=== PATIENT | male | born 1965 | race American Indian/Alaskan Native ===

== ENCOUNTER 2017-07-14 13:38 | Emergency (ER) | payer SELFPAY ==
[2017-07-14] MEDS ORDERED: TESSALON PERLES PO ONE (15:24)
[2017-07-14] MEDS ORDERED: LIDOCAINE VISCOUS 2% PO ONE (15:24)
[2017-07-14] MEDS ORDERED: ULTRAM PO ONE (15:24)
[2017-07-14] MEDS ORDERED: MUCINEX ER PO ONE (15:24)
--- NOTE | 2017-07-14 15:32 | Emergency Department Report ---
Chief Complaint: Upper Respiratory Infection Stated Complaint: FLU LIKE SYMPTOMS Time Seen by Provider: 07/14/17 15:09 - HPI History of Present Illness: The patient is a 51-year-old male who presents for evaluation of cold-like symptoms. The patient reports 2-3 days of generalized myalgias and achy quality headache, moderate severity, constant since onset, and is exacerbated with coughing. He also has experienced a nonproductive cough and soreness of throat, moderate in severity, exacerbated with swallowing, burning in quality. The patient fever, hemoptysis, denies dyspnea, neck stiffness, dysphagia, stridor, drooling, difficulty tolerating secretions, dysphonia, hoarseness of voice, neck stiffness, chest pain, abdominal pain syncope, paresthesias, or motor weakness in the arms or legs, or other focal neurological deficit - Exam Vital Signs: Vital Signs 07/14/17 13:50 Temperature 97.8 F Pulse Rate 81 Respiratory 18 Rate Blood Pressure 143/86 O2 Sat by Pulse 99 Oximetry Physical Exam: General: well-nourished, well-developed, no acute distress Head: Normocephalic, atraumatic Eyes: normal sclera ENT: Mucous membranes are pink and moist Neck: trachea midline, neck supple, No neck stiffness, no cervical adenopathy Respiratory: Breath sounds equal bilaterally, no wheezing, rales, or rhonchi Cardio: S1 and S2 present, no murmurs, rubs, gallops, capillary refill is brisk Abdomen: Normoactive bowel sounds, soft abdomen, no rigidity, no guarding or rebound tenderness Chest WALL/Back: No tenderness to palpation of the chest wall, no CVA tenderness with percussion Musc: No pitting edema Skin: No rash Neuro: alert oriented x4, normal cognition, speech normal, PERRL, EOM intact, no facial drooping, no uvula or tongue deviation on protrusion, no deficit with rotation of neck or shoulder shrug, no obvious gross motor deficit in the upper or lower extremities with flexion or extension at the shoulder, elbow, wrist, hip, knee, or ankle bilaterally, no obvious gross sensation deficit to crude touch or 2 pt discrimination, 2+ symmetric reflexes on DTR testing, no coordination deficit with gswqmr-nd-vebd or scha-qq-lqdy testing, romberg negative, patient able to to ambulate without abnormal gait Psych: Normal affect MSE screening note: Focused history and physical exam performed. Due to findings the following was ordered: ED Disposition for MSE Condition: Undetermined Referrals: PRIMARY CARE, [Primary Care Provider] - 3-5 Days
--- NOTE | 2017-07-14 15:55 | Emergency Department Report ---
- General Chief Complaint: Upper Respiratory Infection Stated Complaint: FLU LIKE SYMPTOMS Time Seen by Provider: 07/14/17 15:09 Source: patient Mode of arrival: Ambulatory Limitations: No Limitations - History of Present Illness Initial Comments: 51-year-old male past medical history peptic ulcer disease presents with complaint of cough slightly productive, left-sided earache, body aches. Patient is awake alert and oriented 3 no audible wheezing or stridor. Denies nausea or vomiting. States he has slight body aches. Unknown if he has sick contacts at work. Denies chest pain palpitations or shortness of breath at rest. States he does feel slightly feverish and also complaining of left earache. States he also has slightly sore throat. Speaking in full sentences no trismus or drooling noted. MD Complaint: cough Onset/Timin -: days(s) Severity: moderate Consistency: intermittent Associated Symptoms: fever, sore throat, cough - Related Data Previous Rx's Medication Instructions Recorded Last Taken Type Azithromycin [Zithromax Z-DEBORAH] 250 mg PO QDAY #1 pack 07/14/17 Unknown Rx Benzonatate [Tessalon Perles] 100 mg PO Q8HR PRN #20 capsule 07/14/17 Unknown Rx Dextromethorphan/Benzocaine 1 each PO Q4H PRN #1 box 07/14/17 Unknown Rx [Cepacol Sorethroat-Cough Jesus] Phenylephrine/Dm/Acetaminop/GG 10 ml PO Q6H PRN #1 liquid 07/14/17 Unknown Rx [Mucinex Geoj-Ykf-Esgsyahtuj Lq] Allergies Allergy/AdvReac Type Severity Reaction Status Date / Time No Known Allergies Allergy Unverified 07/14/17 13:52 ED Review of Systems ROS: Stated complaint: FLU LIKE SYMPTOMS Other details as noted in HPI Constitutional: fever. denies: chills Eyes: denies: eye pain, eye discharge, vision change ENT: denies: ear pain, throat pain Respiratory: cough. denies: shortness of breath, wheezing Cardiovascular: denies: chest pain, palpitations Endocrine: no symptoms reported Gastrointestinal: denies: abdominal pain, nausea, diarrhea Genitourinary: denies: urgency, dysuria Musculoskeletal: denies: back pain, joint swelling, arthralgia Skin: denies: rash, lesions Neurological: denies: headache, weakness, paresthesias Psychiatric: denies: anxiety, depression Hematological/Lymphatic: denies: easy bleeding, easy bruising ED Past Medical Hx - Past Medical History Hx GERD: Yes (peptic ulcers) - Surgical History Past Surgical History?: No - Social History Smoking Status: Never Smoker Substance Use Type: None - Medications Home Medications: Home Medications Medication Instructions Recorded Confirmed Last Taken Type Azithromycin [Zithromax Z-DEBORAH] 250 mg PO QDAY #1 pack 07/14/17 Unknown Rx Benzonatate [Tessalon Perles] 100 mg PO Q8HR PRN #20 capsule 07/14/17 Unknown Rx Dextromethorphan/Benzocaine 1 each PO Q4H PRN #1 box 07/14/17 Unknown Rx [Cepacol Sorethroat-Cough Jesus] Phenylephrine/Dm/Acetaminop/GG 10 ml PO Q6H PRN #1 liquid 07/14/17 Unknown Rx [Mucinex Aueq-Ugt-Bnsapgsoep Lq] ED Physical Exam - General Limitations: No Limitations General appearance: alert, in no apparent distress - Head Head exam: Present: atraumatic, normocephalic - Eye Eye exam: Present: normal appearance, PERRL, EOMI - ENT ENT exam: Present: mucous membranes moist - Expanded ENT Exam Expanded TM/Canal exam: Erythema: Right TM Mouth exam: Present: normal external inspection Teeth exam: Present: normal inspection Throat exam: Positive: normal inspection (no [employer], uvula is midline, no tonsillar exudates) - Neck Neck exam: Present: normal inspection - Respiratory Respiratory exam: Present: normal lung sounds bilaterally (lungs clear to auscultation bilaterally). Absent: respiratory distress - Cardiovascular Cardiovascular Exam: Present: regular rate, normal rhythm. Absent: systolic murmur, diastolic murmur, rubs, gallop - GI/Abdominal GI/Abdominal exam: Present: soft, normal bowel sounds - Rectal Rectal exam: Present: deferred - Extremities Exam Extremities exam: Present: normal inspection - Back Exam Back exam: Present: normal inspection - Neurological Exam Neurological exam: Present: alert, oriented X3, CN II-XII intact, normal gait - Psychiatric Psychiatric exam: Present: normal affect, normal mood - Skin Skin exam: Present: warm, dry, intact, normal color. Absent: rash ED Course Vital Signs 04/22/18 13:50 Temperature 97.8 F Pulse Rate 81 Respiratory 18 Rate Blood Pressure 143/86 O2 Sat by Pulse 99 Oximetry ED Medical Decision Making - Medical Decision Making A/P: Viral syndrome versus otitis media 1-chest x-ray wnl 2-Tylenol when necessary, Tessalon Perles, Mucinex, throat lozenges, azithromycin 3- f/u with pmd, vs stable before dc Critical care attestation.: If time is entered above; I have spent that time in minutes in the direct care of this critically ill patient, excluding procedure time. ED Disposition Clinical Impression: Upper respiratory infection Qualifiers: URI type: unspecified viral URI Qualified Code(s): J06.9 - Acute upper respiratory infection, unspecified Disposition: DC-01 TO HOME OR SELFCARE Is pt being admited?: No Does the pt Need Aspirin: No Condition: Undetermined Instructions: Upper Respiratory Infection (ED), Otitis Media (ED) Prescriptions: Azithromycin [Zithromax Z-DEBORAH] 250 mg PO QDAY #1 pack Benzonatate [Tessalon Perles] 100 mg PO Q8HR PRN #20 capsule PRN Reason: Cough Dextromethorphan/Benzocaine [Cepacol Sorethroat-Cough Jesus] 1 each PO Q4H PRN #1 box PRN Reason: Cough Phenylephrine/Dm/Acetaminop/GG [Mucinex Jqfr-Tvy-Apwfpytrnp Lq] 10 ml PO Q6H PRN #1 liquid PRN Reason: Cough Referrals: [facility] [Outside] - 3-5 Days [facility] [Outside] - 3-5 Days Forms: Work/School Release Form(ED) Time of Disposition: 17:07
[2017-07-14] MEDS ORDERED: MOTRIN PO ONE (16:19)
[2017-07-14] MEDS ORDERED: TYLENOL PO ONE (16:20)
--- NOTE | 2017-07-14 16:22 | XRay Report ---
FINAL REPORT EXAM: XR CHEST ROUTINE 2V HISTORY: cough TECHNIQUE: Two view chest PA and lateral PRIORS: None. FINDINGS: Cardiac and mediastinal contours are unremarkable. No focal pulmonary infiltrate is identified. No pleural fluid collection seen. Pulmonary vasculature is unremarkable. IMPRESSION: Negative two-view chest
[2017-07-14 17:22] VITALS: BP 121/84
== END 2017-07-14 17:20 | disposition home or self-care (01) ==
LOC: ED 13:38
DX: J06.9 Acute upper respiratory infection, unspecified (principal); K21.9 Gastro-esophageal reflux disease without esophagitis
CPT/HCPCS: 71046; 99283

== ENCOUNTER 2017-07-16 13:20 | Emergency (ER) | payer OTHER ==
[2017-07-16 13:27] VITALS: BP 123/66
--- NOTE | 2017-07-16 17:23 | Emergency Department Report ---
[facility] Chief Complaint: Eye Problems Stated Complaint: PINK EYE Time Seen by Provider: 07/16/17 16:47 Duration: 2 Days Side: Bilateral Severity: moderate Symptoms: Yes Eye Itching, Yes Eye Redness, Yes Mucous Drainage, Yes Purulent Drainage, No Eye Pain, No Blurred Vision, No Preceding URI, No H/O Allergic Rhinitis, No Contact Lens Use, No Trauma, No Fever, No Headache Other History: Patient is a 51-year-old male who presents to ED complaining of the patient's that is bilateral eyes. Patient states his medication for the past 2 days. Patient states he woke up this morning with a lot of mucus in both eyes. Patient denies trauma, blurry vision, contacts or glasses use. Patient was seen here about 4 days ago for upper respiratory infection with cough. He denies fever nausea vomiting or chills ED Review of Systems ROS: Stated complaint: PINK EYE Other details as noted in HPI Constitutional: denies: chills, fever Eyes: denies: eye pain, eye discharge, vision change ENT: denies: ear pain, throat pain Respiratory: denies: cough, shortness of breath, wheezing Cardiovascular: denies: chest pain, palpitations Endocrine: no symptoms reported Gastrointestinal: denies: abdominal pain, nausea, diarrhea Genitourinary: denies: urgency, dysuria Musculoskeletal: denies: back pain, joint swelling, arthralgia Skin: denies: rash, lesions Neurological: denies: headache, weakness, paresthesias Psychiatric: denies: anxiety, depression Hematological/Lymphatic: denies: easy bleeding, easy bruising ED Past Medical Hx - Past Medical History Hx GERD: Yes (peptic ulcers) - Social History Smoking Status: Never Smoker Substance Use Type: None - Medications Home Medications: Home Medications Medication Instructions Recorded Confirmed Last Taken Type Azithromycin [Zithromax Z-DEBORAH] 250 mg PO QDAY #1 pack 07/14/17 Unknown Rx Benzonatate [Tessalon Perles] 100 mg PO Q8HR PRN #20 capsule 07/14/17 Unknown Rx Dextromethorphan/Benzocaine 1 each PO Q4H PRN #1 box 07/14/17 Unknown Rx [Cepacol Sorethroat-Cough Jesus] Phenylephrine/Dm/Acetaminop/GG 10 ml PO Q6H PRN #1 liquid 07/14/17 Unknown Rx [Mucinex Zczn-Ujx-Qacmfjywzy Lq] Erythromycin [Erythromycin Ophth 1 applic OP BID #1 tube 07/16/17 Unknown Rx Oint] Ketotifen Fumarate [Allergy Eye 2 drops OP TID #1 bottle 07/16/17 Unknown Rx Drops] Ofloxacin [Ocuflox 0.3%] 1 - 2 drop OP Q6HR #1 bottle 07/16/17 Unknown Rx [facility] Exam - Exam General: Vital signs noted. No distress. Alert and acting appropriately. EYE: Vision is intact bilaterally, yellowish discharge seen in bilateral eyes, nonedematous, sclera is clear bilaterally. No evidence of foreign object in his bilaterally. No lesions bilaterally Eye Exam: Both Injection, Both Mucous Discharge, Neither Chemosis, Neither Abnormal Pupil, Neither EOMI, Neither Eye Foreign Body, Neither Lid Foreign Body , Neither Purulent Discharge HEENT: No Nasal Congestion, No Pharyngeal Erythema Remainder of HEENT: Normal Lungs: Yes Clear Lung Sounds, Yes Good Air Exchange, No Wheezes, No Stridor, No Cough, No Nasal Flaring, No Retractions, No Use of Accessory Muscles ED Course Vital Signs 07/16/17 13:26 Temperature 98.1 F Pulse Rate 70 Respiratory 18 Rate Blood Pressure 123/66 O2 Sat by Pulse 98 Oximetry ED Medical Decision Making - Medical Decision Making 51-year-old male presents with bilateral bacterial conjunctivitis ED course: I discussed treatment with the patient. I discussed antibiotic therapy for the eyes. Patient states he started taking medication as prescribed from his last visit. I discussed with him to continue taking his meds as prescribed. mucus d/c were cleaned with normal saline from eyes. I discussed the patient to follow up with his primary care physician as soon as possible. Vision is intact, vital signs are stable patient is in no distress Discussed with the patient that if symptoms worsen to return to ED immediately. Critical care attestation.: If time is entered above; I have spent that time in minutes in the direct care of this critically ill patient, excluding procedure time. ED Disposition Clinical Impression: Conjunctivitis of both eyes Qualifiers: Conjunctivitis type: acute Acute conjunctivitis type: bacterial Qualified Code( s): H10.33 - Unspecified acute conjunctivitis, bilateral Disposition: - TO HOME OR SELFCARE Is pt being admited?: No Does the pt Need Aspirin: No Condition: Stable Instructions: Conjunctivitis (ED), Allergic Rhinitis (ED) Additional Instructions: Make sure to follow up with the primary care physician as discussed. Take all your medications as you've been prescribed. If you have any worsening symptoms or develop new symptoms please return to ED immediately. Prescriptions: Erythromycin [Erythromycin Ophth Oint] 1 applic OP BID #1 tube Ketotifen Fumarate [Allergy Eye Drops] 2 drops OP TID #1 bottle Ofloxacin [Ocuflox 0.3%] 1 - 2 drop OP Q6HR #1 bottle Referrals: PRIMARY CARE, [Primary Care Provider] - 3-5 Days [facility] [Outside] - 3-5 Days [facility] [Outside] - 3-5 Days [facility] [Outside] - 3-5 Days Forms: Accompanied Note, Work/School Release Form(ED) Time of Disposition: 17:27
== END 2017-07-16 17:41 | disposition home or self-care (01) ==
LOC: ED 13:20
DX: H10.33 Unspecified acute conjunctivitis, bilateral (principal); K21.9 Gastro-esophageal reflux disease without esophagitis
CPT/HCPCS: 99281

== ENCOUNTER 2018-04-14 23:05 | Emergency (ER) | payer SELFPAY ==
[2018-04-14 23:14] VITALS: BP 123/81
[2018-04-15] MEDS ORDERED: PROVENTIL IH ONE (00:14)
[2018-04-15] MEDS ORDERED: DELTASONE PO ONE (00:14)
[2018-04-15] MEDS ORDERED: TYLENOL #3 PO ONE (00:15)
--- NOTE | 2018-04-15 00:42 | XRay Report ---
FINAL REPORT EXAM: XR CHEST ROUTINE 2V HISTORY: cough fever TECHNIQUE: PA and lateral views of the chest were obtained and compared to the study of 07/14/2017. FINDINGS: The heart size and mediastinum appear normal. The lungs are clear. Pleural fluid is not seen. The ske letal structures appear well maintained. IMPRESSION: No acute process in the chest.
[2018-04-15] MEDS ORDERED: TYLENOL PO ONE (00:48)
[2018-04-15] MEDS ORDERED: TYLENOL ONE (00:50)
--- NOTE | 2018-04-15 00:53 | Emergency Department Report ---
Upper Respiratory HPI - HPI Chief Complaint: Upper Respiratory Infection Stated Complaint: RUNNY NOSE VOMITING COUGH MARCO Time Seen by Provider: 04/15/18 00:14 Duration: 5 Days URI Symptoms: Rhinorrhea: Yes, Sore Throat: Yes, Ear Pain: No, Cough: Yes, Shortness of Breath: No, Sick Contacts: No, Unable to Take Fluids: No, Urine Output Abnormal: No, Listless Behavior: No Other History: Patient 52-year-old -Spanish male who presents with cough sore throat and ear pain he was diagnosed with bronchitis 2 days ago station states was unable to afford Augmentin presents to ED tonight for different medications endorses cough and nocturnal wheezing 1 episode of nausea vomiting mucus - Home Meds and Allergies Home Medications: Previous Rx's Medication Instructions Recorded Last Taken Type Azithromycin [Zithromax Z-KANNAN] 250 mg PO QDAY #1 pack 07/14/17 Unknown Rx Benzonatate [Tessalon Perles] 100 mg PO Q8HR PRN #20 capsule 07/14/17 Unknown Rx Dextromethorphan/Benzocaine 1 each PO Q4H PRN #1 box 07/14/17 Unknown Rx [Cepacol Sorethroat-Cough Jesus] Phenylephrine/Dm/Acetaminop/GG 10 ml PO Q6H PRN #1 liquid 07/14/17 Unknown Rx [Mucinex Xrif-Dmc-Yzvmknabnz Lq] Erythromycin [Erythromycin Ophth 1 applic OP BID #1 tube 07/16/17 Unknown Rx Oint] Ketotifen Fumarate [Allergy Eye 2 drops OP TID #1 bottle 07/16/17 Unknown Rx Drops] Ofloxacin [Ocuflox 0.3%] 1 - 2 drop OP Q6HR #1 bottle 07/16/17 Unknown Rx Azithromycin [Zithromax Z-KANNAN] 250 mg PO DAILY #6 tab 04/15/18 Unknown Rx predniSONE [Deltasone] 40 mg PO QDAY 5 Days #10 tab 04/15/18 Unknown Rx Allergies/Adverse Reactions: Allergies Allergy/AdvReac Type Severity Reaction Status Date / Time naproxen [From Naprosyn] Allergy Rash Verified 04/14/18 23:20 tramadol Allergy Rash Verified 04/14/18 23:20 ED Review of Systems ROS: Stated complaint: RUNNY NOSE VOMITING COUGH MARCO Other details as noted in HPI Constitutional: denies: chills, fever Eyes: denies: eye pain, eye discharge, vision change ENT: ear pain, throat pain, congestion Respiratory: cough, wheezing Cardiovascular: denies: chest pain, palpitations Endocrine: no symptoms reported Gastrointestinal: denies: abdominal pain, nausea, diarrhea Genitourinary: denies: urgency, dysuria Musculoskeletal: denies: back pain, joint swelling, arthralgia Skin: denies: rash, lesions Neurological: denies: headache, weakness, paresthesias Psychiatric: denies: anxiety, depression Hematological/Lymphatic: denies: easy bleeding, easy bruising ED Past Medical Hx - Past Medical History Previous Medical History?: Yes Hx GERD: Yes (peptic ulcers) - Surgical History Past Surgical History?: No - Social History Smoking Status: Current Some Day Smoker - Medications Home Medications: Home Medications Medication Instructions Recorded Confirmed Last Taken Type Azithromycin [Zithromax Z-KANNAN] 250 mg PO QDAY #1 pack 07/14/17 Unknown Rx Benzonatate [Tessalon Perles] 100 mg PO Q8HR PRN #20 capsule 07/14/17 Unknown Rx Dextromethorphan/Benzocaine 1 each PO Q4H PRN #1 box 07/14/17 Unknown Rx [Cepacol Sorethroat-Cough Jesus] Phenylephrine/Dm/Acetaminop/GG 10 ml PO Q6H PRN #1 liquid 07/14/17 Unknown Rx [Mucinex Lquf-Idm-Qurcpcghmx Lq] Erythromycin [Erythromycin Ophth 1 applic OP BID #1 tube 07/16/17 Unknown Rx Oint] Ketotifen Fumarate [Allergy Eye 2 drops OP TID #1 bottle 07/16/17 Unknown Rx Drops] Ofloxacin [Ocuflox 0.3%] 1 - 2 drop OP Q6HR #1 bottle 07/16/17 Unknown Rx Azithromycin [Zithromax Z-KANNAN] 250 mg PO DAILY #6 tab 04/15/18 Unknown Rx predniSONE [Deltasone] 40 mg PO QDAY 5 Days #10 tab 04/15/18 Unknown Rx ED Bronchiolitis Physical Exam - Exam General: Vital signs noted. No distress. Alert and acting appropriately. HEENT: Yes Pharyngeal Erythema, Yes Rhinorrhea (clear ), No Conjuctival Injection, No Dry Mucous Membranes Ear: Neither TM Bulge, Neither TM Erythema, Neither EAC Discharge Neck: No Adenopathy, No Rigidity Lungs: Yes Clear Lung Sounds, Yes Good Air Exchange, Yes Cough, No Wheezes, No Stridor, No Nasal Flaring, No Retractions, No Use of Accessory Muscles Heart: Yes Regular, No Murmur Abdomen: Yes Normal Bowel Sounds, No Tenderness, No Peritoneal Signs Skin: No Rash, No Eczema Neurologic: Alert and oriented, no deficits. Musculoskeletal: Unremarkable. ED Bronchiolitis Tests - Testing Testing: CXR: Normal/Negative Treatments - Treaments Treatment: Improved Albuterol (alb, prednisone ) ED Physical Exam - General Limitations: No Limitations General appearance: alert, in no apparent distress - Head Head exam: Present: atraumatic, normocephalic - Eye Eye exam: Present: normal appearance, PERRL, EOMI Pupils: Present: normal accommodation - ENT ENT exam: Present: mucous membranes moist - Expanded ENT Exam Expanded Ear exam: Present: normal external inspection Mouth exam: Absent: trismus Teeth exam: Present: normal inspection Throat exam: Positive: tonsillar erythema, tonsillomegaly. Negative: tonsillar exudate, R peritonsillar mass, L peritonsillar mass - Neck Neck exam: Present: normal inspection, full ROM. Absent: tenderness, meningismus, lymphadenopathy, thyromegaly - Respiratory Respiratory exam: Present: normal lung sounds bilaterally. Absent: respiratory distress, wheezes, stridor, chest wall tenderness - Cardiovascular Cardiovascular Exam: Present: regular rate, normal rhythm, normal heart sounds. Absent: systolic murmur, diastolic murmur, rubs, gallop - GI/Abdominal GI/Abdominal exam: Present: soft, normal bowel sounds - Rectal Rectal exam: Present: deferred - Extremities Exam Extremities exam: Present: normal inspection - Back Exam Back exam: Present: normal inspection, full ROM. Absent: tenderness, CVA tenderness (R), CVA tenderness (L), muscle spasm, paraspinal tenderness, vertebral tenderness, rash noted - Neurological Exam Neurological exam: Present: alert, oriented X3, normal gait, reflexes normal - Psychiatric Psychiatric exam: Present: normal affect, normal mood - Skin Skin exam: Present: warm, dry, intact, normal color. Absent: rash ED Course Vital Signs 04/14/18 23:09 Temperature 98.0 F Pulse Rate 85 Respiratory 18 Rate Blood Pressure 123/81 O2 Sat by Pulse 99 Oximetry ED Medical Decision Making - Radiology Data Radiology results: report reviewed, image reviewed Findings [facility] [address] [place] [address] XRay Report Signed Patient: ADAM RUIZ MR#: [id number] : 1965 Acct:[id number] Age/Sex: 52 / M ADM Date: 04/14/18 Loc: ED Attending Dr: Ordering Physician: KEVIN FAULKNER NP Date of Service: 04/15/18 Procedure(s): XR chest routine 2V Accession Number(s): [id number] cc: KEVIN FAULKNER NP Fluoro Time In Minutes: FINAL REPORT EXAM: XR CHEST ROUTINE 2V HISTORY: cough fever TECHNIQUE: PA and lateral views of the chest were obtained and compared to the study of 07/14/2017. FINDINGS: The heart size and mediastinum appear normal. The lungs are clear. Pleural fluid is not seen. The skeletal structures appear well maintained. IMPRESSION: No acute process in the chest. Transcribed By: RB Dictated By: LIANNA RODRIGUEZ MD Electronically Authenticated By: LIANNA RODRIGUEZ MD Signed Date/Time: 04/15/18 0042 - Medical Decision Making Chest x-ray normal no infiltration opacities breathing improved after albuterol and prednisone patient, ambulatory in ED without increased shortness of breath DC to Home prescription for Z-Kannan albuterol inhaler and prednisone patient has prescription for Tessalon Perles lashes secured medications and take as prescribed patient will follow up with [facility] in 2 days or return to ED should symptoms worsen patient verbalized agreement and understanding with same patient is currently alert and oriented ambulatory in ED there is no wheezing no chest pain no dizziness no lightheadedness no nausea vomiting no back pain patient with no acute distress at this time Critical care attestation.: If time is entered above; I have spent that time in minutes in the direct care of this critically ill patient, excluding procedure time. ED Disposition Clinical Impression: Bronchitis URI (upper respiratory infection) Qualifiers: URI type: unspecified viral URI Qualified Code(s): J06.9 - Acute upper respiratory infection, unspecified Disposition: DC-01 TO HOME OR SELFCARE Is pt being admited?: No Does the pt Need Aspirin: No Condition: Stable Instructions: Acute Bronchitis (ED), Upper Respiratory Infection (ED) Prescriptions: Azithromycin [Zithromax Z-KANNAN] 250 mg PO DAILY #6 tab predniSONE [Deltasone] 40 mg PO QDAY 5 Days #10 tab Referrals: [facility] [Outside] - 3-5 Days Forms: Work/School Release Form(ED) Time of Disposition: 00:58
== END 2018-04-15 01:12 | disposition home or self-care (01) ==
LOC: ED 23:05
DX: J40 Bronchitis, not specified as acute or chronic (principal); J06.9 Acute upper respiratory infection, unspecified; K21.9 Gastro-esophageal reflux disease without esophagitis; F17.200 Nicotine dependence, unspecified, uncomplicated; Z88.5 Allergy status to narcotic agent
CPT/HCPCS: 71046; 94640; 99283; J7512